=== PATIENT | male | born 1995 | race Caucasian/White ===

== ENCOUNTER 2020-08-15 09:49 | Emergency (ER) | payer OTHER, SELFPAY ==
[2020-08-15 10:03] VITALS: BP 135/81; PULSE 84; RESP 16; TEMP 36.9; O2SAT 99
--- NOTE | 2020-08-15 10:14 | ED.SKABFB ---
HPI - Skin/Abscess/Foreign Bdy General Chief complaint: Skin/Abscess/Foreign Body Stated complaint: Rash Source: patient Mode of arrival: ambulatory Limitations: no limitations History of Present Illness HPI narrative: Patient is a 24-year-old male who presents with rash. He reports flulike symptoms starting on 08/10 with fever and rash starting on 08/11. He reports testing for Covid on 08/13 and results were negative this a.m. He reports rash started on torso and has now beginning to spread to extremities and head. He is unsure if he was vaccinated for chickenpox as a child, his mother is unsure as well. He denies taking [id number] medications at this time. Reports taking oatmeal baths to relieve the itch.. Related Data Home Medications Medication Instructions Recorded Confirmed dextroamphetamine-amphetamine 20 mg PO QAM 08/15/20 08/15/20 [Adderall XR] Allergies Allergy/AdvReac Type Severity Reaction Status Date / Time No Known Allergies Allergy Verified 08/15/20 10:18 Review of Systems Review of Systems: Narrative: CONSTITUTIONAL: Reports fever, generalized body aches EYES: Denies visual changes, redness, or discharge. ENT: Denies rhinorrhea, congestion, sore throat, or otalgia. CARDIOVASCULAR: Denies chest pain, palpitations, or edema. RESPIRATORY: Denies cough or dyspnea. GASTROINTESTINAL: Denies abdominal pain, nausea, vomiting, or diarrhea. GENITOURINARY: Denies dysuria or hematuria. SKIN: Reports itchy rash x4 days. MUSCULOSKELETAL: Denies back pain, joint pain, or myalgia. NEUROLOGIC: Denies headache, numbness, dizziness, or weakness. PSYCHIATRIC: Denies anxiety or depression. [facility] Past Medical History Medical History No significant family history No significant past medical history Surgical History Surgical History No significant past surgical history Family History Family History (Updated 08/15/20 @ 10:27 by ROSALBA Woods) Other No significant family history Social History Social History (Updated 08/15/20 @ 10:27 by ROSALBA Woods) Smoking status: Never smoker Alcohol intake: current Alcohol use details: occasional Substance use: never Gender identity (if verbalized by the patient): Male Exam Narrative: Exam Narrative: GENERAL: Well-appearing, well-nourished, and in no acute distress. HEAD: Normocephalic, atraumatic. EYES: No redness or drainage. ENT: Mucous membranes pink and moist. CHEST: No respiratory distress. HEART: Regular rate and rhythm. GI: Soft, nontender without rebound, or guarding. EXTREMITIES: Normal range of motion. No edema. SKIN: diffuse pruritic, red macules and generalized vesicular exanthem on trunk, head, scalp and starting on extremities. NEURO: No focal deficits. Alert and oriented x3. Gait steady. PSYCH: Normal affect. No signs of depression or anxiety. Course Vital Signs Vital signs: Vital Signs Temperature 36.9 C 08/15/20 10:03 Pulse Rate 84 08/15/20 10:03 Respiratory Rate 16 08/15/20 10:03 Blood Pressure 135/81 08/15/20 10:03 Pulse Oximetry 99 08/15/20 10:03 Temperature 36.9 C 08/15/20 10:03 Pulse Rate 84 08/15/20 10:03 Respiratory Rate 16 08/15/20 10:03 Blood Pressure 135/81 08/15/20 10:03 Pulse Oximetry 99 08/15/20 10:03 MDM - Skin/Abscess/Foreign Bdy MDM Narrative Medical decision making narrative: Discussed with patient with symptoms and presentation of rash, he likely has chickenpox. Discussed symptomatic treatment. Discussed contagiousness virus. Patient is stable for discharge home with outpatient follow-up with PCP in 3 to 5 days. Differential Diagnosis Differential diagnosis: Likely viral exanthem, dermatophytosis, urticaria, herpes zoster and impetigo Critical Care Time Critical Care Time Critical Care Time: No Discharge Plan
== END 2020-08-15 10:48 | disposition home or self-care (01) ==
PROVIDERS: Emergency Provider Nurse Practitioner
DX: B01.9 Varicella without complication (principal)
CPT/HCPCS: 87804; 87880; 99203; G0463